=== PATIENT | female | born 1985 | race Two or more races ===

== ENCOUNTER 2018-04-29 01:50 | Emergency (ER) | payer SELFPAY ==
[~2018-04-29] VITALS: Ht 165.1 cm; Wt 72.6 kg
[2018-04-29 02:40] LABS: BASO # 0.1 x10^3/uL (0.0-0.2); BASO % 1 % (0-3); EOS # 0.2 x10^3/uL (0.0-0.7); EOS % 3 % (0-3); HEMATOCRIT 37.7 % (36.0-47.0); LYMPH # 2.5 x10^3/uL (1.0-4.8); LYMPH % 31 % (24-48); MEAN CORPUSCULAR HEMOGLOBIN 29 pg (25-35); MEAN CORPUSCULAR HGB CONC 34 g/dL (31-37); MEAN CORPUSCULAR VOLUME 85 fL (79-100); MONO # 0.5 x10^3/uL (0.0-1.1); MONO % 6 % (0-9); NEUT # 4.7 x10^3uL (1.8-7.7); NEUT % 59 % (31-73); PLATELET COUNT 300 x10^3/uL (140-400); RED BLOOD COUNT 4.43 x10^6/uL (3.50-5.40); RED CELL DISTRIBUTION WIDTH 13.5 % (11.5-14.5); WHITE BLOOD COUNT 7.9 x10^3/uL (4.0-11.0)
[2018-04-29] MEDS ORDERED: fentaNYL PF VIAL 100 MCG/2 ML VIAL IV ONE ×2 (02:45→03:30)
[2018-04-29] MEDS ORDERED: IV NORMAL SALINE 1000ML BAG 1,000 ML IV ONE (02:45)
[2018-04-29] MEDS ORDERED: ONDANSETRON PF 4 MG/2 ML VIAL. IV ONE (02:45)
[2018-04-29 02:47] LABS: BILIRUBIN,URINE MODERATE (NEG); CLARITY,URINE CLOUDY; COLOR,URINE RED; NITRITE,URINE POSITIVE (NEG); PROTEIN,URINE 100 mg/dL (NEG-TRACE)
--- NOTE | 2018-04-29 02:47 | PHYS DOC ---
Past Medical History Past Medical History: No Pertinent History Past Surgical History: Alcohol Use: Rarely Drug Use: None Adult General Chief Complaint Chief Complaint: ABDOMINAL PAIN HPI HPI Patient is a 33 year old female who presents with abdominal pain. Patient had sudden onset of abdominal pain about 2 hours prior to presentation. She was asleep when the pain woke her up. Pain is located in the left side of her abdomen. She also had some dysuria and noted some hematuria as well as some difficulty with urination. Patient denies that she has had similar symptoms in the past. Her last menstrual cycle was 2 weeks earlier. She denies vaginal complaints. She did have some nausea but no vomiting. No fever. She was at baseline health prior to onset of symptoms. Review of Systems Review of Systems Constitutional: Denies fever or chills Eyes: Denies HENT: Denies Respiratory: Denies Cardiovascular: No additional information GI: as documented above : Denies dysuria Musculoskeletal: Denies back pain Integument: Denies rash or skin lesions Neurologic: Denies headache Endocrine: Denies polyuria All other systems were reviewed and found to be within normal limits, except as documented in this note. Current Medications Current Medications Current Medications Medications (Trade) Dose Ordered Sig/Kevin Start Time Stop Time Status Last Admin Dose Admin Acetaminophen/ Hydrocodone Bitart (Lortab 5/325) 1 tab 1X ONCE 04/29/18 05:15 04/29/18 05:16 UNV Ceftriaxone Sodium 50 ml @ 100 mls/hr 1X ONCE 04/29/18 03:30 04/29/18 03:59 DC 04/29/18 03:29 100 MLS/HR Fentanyl Citrate (Fentanyl 2ml Vial) 75 mcg 1X ONCE 04/29/18 03:30 04/29/18 03:32 DC 04/29/18 03:28 75 MCG Ketorolac Tromethamine (Toradol 30mg Vial) 30 mg 1X ONCE 04/29/18 05:15 04/29/18 05:16 Ondansetron HCl (Zofran) 4 mg 1X ONCE 04/29/18 02:45 04/29/18 03:18 DC 04/29/18 02:51 4 MG Sodium Chloride 1,000 ml @ 1,000 mls/hr 1X ONCE 04/29/18 02:45 04/29/18 03:44 DC 04/29/18 02:52 1,000 MLS/HR Tamsulosin HCl (Flomax) 0.4 mg 1X ONCE 04/29/18 05:00 04/29/18 05:02 DC 04/29/18 05:06 0.4 MG Allergies Allergies Allergies Coded Allergies Type Severity Reaction Last Updated Verified No Known Drug Allergies 04/17/14 No Physical Exam Physical Exam Constitutional: Well developed, well nourished, significant distress 2/2 pain, non-toxic appearance HENT: Normocephalic, atraumatic, bilateral external ears normal, oropharynx moist Eyes: PERRLA, EOMI, conjunctiva normal Neck: Normal range of motion, no tenderness Cardiovascular:Heart rate regular rhythm, no murmur Lungs & Thorax: Bilateral breath sounds clear to auscultation Abdomen: Bowel sounds normal, soft, NTTP Skin: Warm, dry, no erythema, no rash Back: No tenderness, CVA tenderness on the left Extremities: No tenderness, no cyanosis Neurologic: Alert and oriented X 3, normal motor function Psychologic: Affect normal Current Patient Data Vital Signs Vital Signs Date Time Temp Pulse Resp B/P (MAP) Pulse Ox O2 Delivery O2 Flow Rate FiO2 04/29/18 04:21 70 14 117/76 (90) 100 Room Air 04/29/18 02:00 97.5 97.5 Lab Values Laboratory Tests Test 04/29/18 02:15 04/29/18 02:30 Urine Collection Type Unknown Urine Color Red Urine Clarity Cloudy Urine pH 5.0 Urine Specific [place] >=1.030 Urine Protein 100 mg/dL (NEG-TRACE) Urine Glucose (UA) Negative mg/dL (NEG) Urine Ketones (Stick) Trace mg/dL (NEG) Urine Blood Large (NEG) Urine Nitrite Positive (NEG) Urine Bilirubin Moderate (NEG) Urine Urobilinogen Dipstick 1.0 mg/dL (0.2 mg/dL) Urine Leukocyte Esterase Small (NEG) Urine RBC Tntc /HPF (0-2) Urine WBC 5-10 /HPF (0-4) Urine Squamous Epithelial Cells None /LPF Urine Bacteria Many /HPF (0-FEW) Urine Mucus Marked /LPF Urine Test Negative (NEG) White Blood Count 7.9 x10^3/uL (4.0-11.0) Red Blood Count 4.43 x10^6/uL (3.50-5.40) Hemoglobin 13.0 g/dL (12.0-15.5) Hematocrit 37.7 % (36.0-47.0) Mean Corpuscular Volume 85 fL (79-100) Mean Corpuscular Hemoglobin 29 pg (25-35) Mean Corpuscular Hemoglobin Concent 34 g/dL (31-37) Red Cell Distribution Width 13.5 % (11.5-14.5) Platelet Count 300 x10^3/uL (140-400) Neutrophils (%) (Auto) 59 % (31-73) Lymphocytes (%) (Auto) 31 % (24-48) Monocytes (%) (Auto) 6 % (0-9) Eosinophils (%) (Auto) 3 % (0-3) Basophils (%) (Auto) 1 % (0-3) Neutrophils # (Auto) 4.7 x10^3uL (1.8-7.7) Lymphocytes # (Auto) 2.5 x10^3/uL (1.0-4.8) Monocytes # (Auto) 0.5 x10^3/uL (0.0-1.1) Eosinophils # (Auto) 0.2 x10^3/uL (0.0-0.7) Basophils # (Auto) 0.1 x10^3/uL (0.0-0.2) Sodium Level 139 mmol/L (136-145) Potassium Level 3.7 mmol/L (3.5-5.1) Chloride Level 103 mmol/L (98-107) Carbon Dioxide Level 26 mmol/L (21-32) Anion Gap 10 (6-14) Blood Urea Nitrogen 11 mg/dL (7-20) Creatinine 0.6 mg/dL (0.6-1.0) Estimated GFR (Cockcroft-Gault) 113.8 Glucose Level 127 mg/dL (70-99) H Calcium Level 8.8 mg/dL (8.5-10.1) Laboratory Tests 04/29/18 02:30 Laboratory Tests 04/29/18 02:30 EKG EKG [] Radiology/Procedures Radiology/Procedures FINDINGS: Abdominal aorta is not aneurysmal. No intrahepatic bile duct dilation. Liver is mildly low attenuation. No peripancreatic fluid collection. Spleen unremarkable. Left-sided hydronephrosis and hydroureter with 4 mm left ureterovesicular junction stone. Urinary bladder is largely decompressed. No right-sided hydronephrosis. Fat-containing umbilical hernia. The appendix measures up to about 7-8 mm. No dilated loops of bowel suggest obstruction. There are scattered prominent lymph nodes seen within the abdomen and pelvis. For example medial to the right-sided colon measuring approximately 9 x 12 mm. IMPRESSION: 1. Left-sided hydronephrosis and hydroureter with distal ureter stone. 2. The appendix is mildly dilated but there is no adjacent inflammatory changes. Given the lack of adjacent inflammation this does not fulfill all of the CT criteria for acute appendicitis. If there is high clinical concern for appendicitis and further imaging evaluation is desired a follow-up exam could be obtained at a later time to assess for further increase in size of the mildly dilated appendix or development of adjacent inflammatory changes that would be more suggestive of appendicitis. 3. Scattered borderline enlarged lymph nodes are identified which could be reactive in nature but if the patient has history or risk factors for neoplasm follow-up could be obtained to ensure no increase. 4. Liver is low-attenuation. Nonspecific but can be seen with fatty infiltration. Course & Med Decision Making Course & Med Decision Making Pertinent Labs and Imaging studies reviewed. (See chart for details) 02:25: Patient is seen and examined. She is in significant pain. Orders are placed for labs and urinalysis. Medications for pain. 05:00: All results are reviewed and discussed with the patient. CT scan as documented above. The patient has kidney stone and UTI. In the ER, she was given Rocephin 1 g. At discharge, she is given Flomax, Macrobid, [place], ibuprofen. All of her questions are answered prior to discharge. She is currently feeling much improved and is agreeable to the plan of care. She is advised to follow-up with her primary care doctor or return to the ER for any new or worsening symptoms. She is accompanied by family member today who is driving her home. [place] Disclaimer Tim Disclaimer This electronic medical record was generated, in whole or in part, using a voice recognition dictation system. Departure Departure Disposition: HOME, SELF-CARE Condition: GOOD Scripts Nitrofurantoin Monohyd/M-Cryst (MACROBID 100 MG CAPSULE) 100 Mg Capsule 1 CAP PO BID, #20 CAP Prov: ELVIRA GRACE DO 04/29/18 Tamsulosin Hcl (FLOMAX) 0.4 Mg Cap.er.24h 0.4 MG PO DAILY, #7 TAB Prov: ELVIRA GRACE DO 04/29/18 Hydrocodone/Apap 5-325 (NORCO 5-325 TABLET) 1 Each Tablet 1-2 EACH PO PRN Q6HRS PRN for SEVERE PAIN, #20 as needed for pain Prov: ELVIRA GRACE DO 04/29/18 Ibuprofen (IBUPROFEN) 800 Mg Tablet 800 MG PO PRN TID PRN for MILD PAIN, #30 TAB take with food or milk to avoid upsetting stomach Prov: ELVIRA GRACE DO 04/29/18 ELVIRA GRACE DO Apr 29, 2018 02:47
[2018-04-29 03:10] LABS: CALCIUM 8.8 mg/dL (8.5-10.1); CREATININE 0.6 mg/dL (0.6-1.0); GFR 113.8; POTASSIUM 3.7 mmol/L (3.5-5.1)
[2018-04-29 03:10] LABS: BACTERIA,URINE MANY /HPF (0-FEW); RBC,URINE TNTC /HPF (0-2)
[2018-04-29 03:51] LABS: U PREG PATIENT NEGATIVE (NEG)
--- NOTE | 2018-04-29 04:46 | RAD ---
INDICATION: Flank pain COMPARISON: None. TECHNIQUE: Axial CT images obtained through the abdomen and pelvis without contrast. Limited assessment of solid organ structures and vasculature secondary to lack of intravenous contrast.. One or more of the following individualized dose reduction techniques were utilized for this examination: 1. Automated exposure control; 2. Adjustment of the mA and/or kV according to patient size; 3. Use of iterative reconstruction technique. FINDINGS: Abdominal aorta is not aneurysmal. No intrahepatic bile duct dilation. Liver is mildly low attenuation. No peripancreatic fluid collection. Spleen unremarkable. Left-sided hydronephrosis and hydroureter with 4 mm left ureterovesicular junction stone. Urinary bladder is largely decompressed. No right-sided hydronephrosis. Fat-containing umbilical hernia. The appendix measures up to about 7-8 mm. No dilated loops of bowel suggest obstruction. There are scattered prominent lymph nodes seen within the abdomen and pelvis. For example medial to the right-sided colon measuring approximately 9 x 12 mm. IMPRESSION: 1. Left-sided hydronephrosis and hydroureter with distal ureter stone. 2. The appendix is mildly dilated but there is no adjacent inflammatory changes. Given the lack of adjacent inflammation this does not fulfill all of the CT criteria for acute appendicitis. If there is high clinical concern for appendicitis and further imaging evaluation is desired a follow-up exam could be obtained at a later time to assess for further increase in size of the mildly dilated appendix or development of adjacent inflammatory changes that would be more suggestive of appendicitis. 3. Scattered borderline enlarged lymph nodes are identified which could be reactive in nature but if the patient has history or risk factors for neoplasm follow-up could be obtained to ensure no increase. 4. Liver is low-attenuation. Nonspecific but can be seen with fatty infiltration. Electronically signed by: Ronald Amin MD (04/29/2018 4:43 AM) [id number]
[2018-04-29] MEDS ORDERED: HYDR-3164 PO (04:59)
[2018-04-29] MEDS ORDERED: IBUP-1060 PO (04:59)
[2018-04-29] MEDS ORDERED: NITR100C62 PO (04:59)
[2018-04-29] MEDS ORDERED: TAMS0.4C97 PO (04:59)
[2018-04-29] MEDS ORDERED: TAMSULOSIN 0.4 MG CAP.ER.24H. PO ONE (05:00)
[2018-04-29 05:08] VITALS: BP 108/68
[2018-04-29] MEDS ORDERED: KETOROLAC 30 MG/ML VIAL. IV ONE (05:15)
[2018-04-29] MEDS ORDERED: HYDROcodone/APAP 5/325MG 1 TAB TABLET PO ONE (05:15)
== END 2018-04-29 05:15 | disposition home or self-care (01) ==
LOC: ER 01:50
DX: N13.39 Other hydronephrosis (principal); N20.1 Calculus of ureter; R11.0 Nausea; R59.9 Enlarged lymph nodes, unspecified; Z98.890 Other specified postprocedural states
CPT/HCPCS: 36415; 74176; 80048; 81001; 81025; 85025; 96365; 96375; 96376; 99285; J0690; J1885; J2405; J3010; J7030